=== PATIENT | female | born 1970 | race American Indian/Alaskan Native ===

== ENCOUNTER 2017-04-03 07:33 | Emergency (ER) | payer OTHER ==
[2017-04-03 07:49] VITALS: PULSE 71; RESP 18; TEMP 98.2; O2SAT 100
[2017-04-03 07:50] VITALS: BP 144/86
--- NOTE | 2017-04-03 08:21 | C.PDOC ---
History Of Present Illness 46-year-old female, presents to the emergency department with complaints of sore throat and pain in B/L ears for the past few days. States sick contact at home is daughter, with similar symptoms. Patient denies nausea/vomiting, fevers or chills. Time Seen by Provider: 04/03/17 07:55 Chief Complaint (Nursing): ENT Problem History Per: Patient History/Exam Limitations: None Onset/Duration Of Symptoms: Days Current Symptoms Are (Timing): Still Present Past Medical History Reviewed: Historical Data, Nursing Documentation, Vital Signs Vital Signs: Last Vital Signs Temp 98.2 F 04/03/17 07:48 Pulse 71 04/03/17 07:48 Resp 18 04/03/17 07:48 BP 144/86 04/03/17 07:48 Pulse Ox 100 04/03/17 09:27 - Medical History PMH: HTN Family History: States: Unknown Family Hx - Social History Hx Tobacco Use: No Hx Alcohol Use: No Hx Substance Use: No - Immunization History Hx Tetanus Toxoid Vaccination: Yes Hx Influenza Vaccination: Yes Hx Pneumococcal Vaccination: No Review Of Systems Except As Marked, All Systems Reviewed And Found Negative. ENT: Positive for: Ear Pain, Throat Pain Cardiovascular: Negative for: Chest Pain Respiratory: Negative for: Cough, Shortness of Breath Gastrointestinal: Negative for: Vomiting Physical Exam - Physical Exam Appears: Non-toxic, No Acute Distress Skin: Warm, Dry, No Rash Head: Atraumatic, Normacephalic Eye(s): bilateral: Normal Inspection, EOMI Ear(s): Bilateral: Normal Nose: Normal Oral Mucosa: Moist Lips: Normal Appearing Throat: Erythema, Exudate Neck: Normal ROM, Supple Lymphatic: Adenopathy (submandibular) Chest: Symmetrical Cardiovascular: Rhythm Regular Respiratory: Normal Breath Sounds, No Accessory Muscle Use Extremity: Normal ROM Neurological/Psych: Oriented x3, Normal Speech, Normal Cognition ED Course And Treatment O2 Sat by Pulse Oximetry: 100 Progress Note: Patient is resting comfortably, tolerating PO, and is afebrile at this time. Patient will be discharge home, disucssed symptomatic treatment and instructed to follow up with his/her physician in 1-2 days without fail. Patient was instructed to return for any worsening symptoms, persistent fever, neck pain, rash, abdominal pain, or vomiting. Disposition - Disposition Referrals: Consuelo Neves MD [Staff Provider] - Disposition: HOME/ ROUTINE Disposition Time: 08:19 Condition: STABLE Additional Instructions: Follow up with your primary medical doctor or clinic in 2-5 days for further evaluation. Take medications as prescribed. Return to the emergency department at any time if symptoms persist or worsen. Prescriptions: Azithromycin [Zithromax] 250 mg PO DAILY #6 tab Ibuprofen [Motrin] 600 mg PO Q6 PRN #20 tab PRN Reason: Pain, Mild (1-3) Instructions: Pharyngitis (ED) - Clinical Impression Clinical Impression: Pharyngitis - Scribe Statement The provider has reviewed the documentation as recorded by the Georgiaibivette Ruiz All medical record entries made by the Georgiaibivette were at my direction and personally dictated by me. I have reviewed the chart and agree that the record accurately reflects my personal performance of the history, physical exam, medical decision making, and the department course for this patient. I have also personally directed, reviewed, and agree with the discharge instructions and disposition.
== END 2017-04-03 08:35 | disposition home or self-care (01) ==
LOC: C.ER 07:33
DX: J02.9 Acute pharyngitis, unspecified (principal)

== ENCOUNTER 2018-07-18 08:01 | Emergency (ER) | payer OTHER ==
[2018-07-18 08:02] VITALS: BMI 58.6
[2018-07-18 08:08] VITALS: O2SAT 97
--- NOTE | 2018-07-18 08:29 | C.PDOC ---
History Of Present Illness 47 yo female w/hx of sleep apnea, morbid obesity, chronic lower back pain come in for re-evaluation of lower back pain for past 2 weeks. Patient describes pain as localized over lower back, " cramping, and tight", non-radiating and worse with movement. Pt admits, was seen here on 07/15/18, advised Motrin for pain without improvement. Otherwise, pt denies fever, chills, abd. pain, N/V/D, UTI sx, denies saddle anesthesia, incontinence, denies B/L LEs weakness,sensory or vascular deficits. Ambulate to d for evaluation, not in nay apparent distress. Time Seen by Provider: 07/18/18 08:10 Chief Complaint (Nursing): Back Pain History Per: Patient Past Medical History Reviewed: Historical Data, Nursing Documentation, Vital Signs Vital Signs: Last Vital Signs Temp 97.6 F 07/18/18 08:05 Pulse 78 07/18/18 08:05 Resp 18 07/18/18 08:05 BP 131/85 07/18/18 08:05 Pulse Ox 97 07/18/18 09:34 - Medical History PMH: HTN Other PMH: Sleep apnea, morbid obesity Surgical History: No Surg Hx Family History: States: Unknown Family Hx - Social History Hx Tobacco Use: No Hx Alcohol Use: No Hx Substance Use: No - Immunization History Hx Tetanus Toxoid Vaccination: Yes Hx Influenza Vaccination: Yes Hx Pneumococcal Vaccination: No Review Of Systems Except As Marked, All Systems Reviewed And Found Negative. Constitutional: Negative for: Fever, Chills ENT: Negative for: Throat Pain Gastrointestinal: Negative for: Nausea, Vomiting, Abdominal Pain, Diarrhea Genitourinary: Negative for: Dysuria, Frequency, Incontinence Musculoskeletal: Positive for: Back Pain. Negative for: Neck Pain Skin: Negative for: Rash Neurological: Negative for: Weakness, Numbness, Headache, Dizziness Physical Exam - Physical Exam Appears: Well, Non-toxic, No Acute Distress Skin: Normal Color, Warm, Dry, No Rash Eye(s): bilateral: PERRL Nose: No Flaring, No Discharge Oral Mucosa: Moist, No Drooling Tongue: Normal Appearing Lips: Normal Appearing Throat: No Erythema, No Drooling Neck: Trachea Midline, Supple Gastrointestinal/Abdominal: Soft, No Tenderness, No Distention, No Guarding, No Rebound Back: No CVA Tenderness, No Vertebral Tenderness, Muscle Spasm (lumbar paraspinal), Paraspinal Tenderness (diffuse lumbar) Extremity: Normal ROM, No Tenderness, No Pedal Edema, No Deformity, No Swelling Extremity: Bilateral: Atraumatic DTR: Knee (R): 2+, Knee (L): 2+ Neurological/Psych: Oriented x3, Normal Speech, Normal Motor, Normal Sensation, Normal Reflexes ED Course And Treatment O2 Sat by Pulse Oximetry: 97 Pulse Ox Interpretation: Normal - Other Rad L-spine X-Ray: Interpreted by Me, Viewed By Me, Read By Radiologist Interpretation: Accession No. : [id number]. Patient Name / ID : MADELIN [id number] / [id number]. Exam Date : 07/18/2018 08:40:19 ( Approved ). Study Comment : Sex / Age : F / 47Y. Creator : Ferny Mckeon MD. Dictator : Ferny Mckeon MD. Freight Forwarder : Overhead Distribution Engineer : Ferny Mckeon MD. Approver2 : Report Date : 07/18/2018 09:48:39. My Comment : . Date of service: 07/18/2018. PROCEDURE: Radiographs of the Lumbar Spine. HISTORY: Pain. COMPARISON: No prior. FINDINGS: BONES: No acute compression fractures no retropulsed fragments. Vertebral bodies exhibit normal stature. Vertebral bodies and facets normally aligned. DISC SPACES: Multilevel degenerative spondylosis most notably affecting the L5-S1 level which include disc space narrowing, endplate eburnation as well as anterolateral and smaller posterior osteophyte formation. . Vacuum disc phenomena is also present at this level. Facets also hypertrophic at level. Slightly less severe changes seen at the L4-L5 level. Additionally the there are degenerative there is degenerative of spondylosis in the lower thoracic levels. OTHER FINDINGS: None. IMPRESSION: No acute fractures. Degenerative spondylosis most notably affecting the L5-S1 level. Progress Note: On re-eval, pt is afebrile, hemodynamicaly stable. Non-toxic, ambulatoyr in ED with stable gait. Neck: Supple, (-) JVD. ENT: no acute findings. ABd: benign, (-) guarding, (-) rebound. Back: (-) CVA tenderness. Neurologicaly intact. UA results normal. L-spine xray no other acute findings. Pt has clinical findings c/w lumbar strain. Pt advised on marijuana cessation and ref. to F/u with PMD in 1-2 days for re-eavl. return to ED if any worsening or new changes. Disposition Counseled Patient/Family Regarding: Studies Performed, Diagnosis, Need For Followup, Rx Given - Disposition Referrals: Consuelo Neves MD [Staff Provider] - Disposition: HOME/ ROUTINE Disposition Time: 09:34 Condition: STABLE Additional Instructions: LIgt duty, avoid heavy lifting, bending forwards, etc Take medication as need as prescribed Follow up with PMD in 2-3 days for re-evaluation. return to ED if any worsening or new changes. Prescriptions: Gabapentin [Neurontin] 300 mg PO HS #7 cap Methocarbamol [Robaxin] 500 mg PO TID #14 tab traMADol [Ultram] 50 mg PO TID #7 tab Instructions: Lumbar Muscle Strain (DC) Forms: [employer] (Turkmen) - Clinical Impression Clinical Impression: Lumbar sprain, Degenerative spondylolisthesis
[2018-07-18 09:29] LABS: HCG,QUALITATIVE URINE NEGATIVE (NEGATIVE)
[2018-07-18 09:33] LABS: SQUAMOUS EPITHIAL 4 /hpf (0-5); URINE BACTERIA RARE (<OCC); URINE BILIRUBIN NEGATIVE (NEGATIVE); URINE BLOOD 2+ (NEGATIVE); URINE CLARITY Clear (Clear); URINE COLOR Yellow (YELLOW); URINE GLUCOSE (UA) NORMAL (Normal); URINE LEUKOCYTE ESTERASE NEG Leu/uL (Negative); URINE PROTEIN NEGATIVE (NEGATIVE); URINE UROBILINOGEN NORMAL mg/dL (0.2-1.0)
--- NOTE | 2018-07-18 09:50 | RAD ---
Date of service: 07/18/2018 PROCEDURE: Radiographs of the Lumbar Spine. HISTORY: Pain COMPARISON: No prior. FINDINGS: BONES: No acute compression fractures no retropulsed fragments. Vertebral bodies exhibit normal stature. Vertebral bodies and facets normally aligned. DISC SPACES: Multilevel degenerative spondylosis most notably affecting the L5-S1 level which include disc space narrowing, endplate eburnation as well as anterolateral and smaller posterior osteophyte formation. . Vacuum disc phenomena is also present at this level. Facets also hypertrophic at level. Slightly less severe changes seen at the L4-L5 level. Additionally the there are degenerative there is degenerative of spondylosis in the lower thoracic levels. OTHER FINDINGS: None. IMPRESSION: No acute fractures. Degenerative spondylosis most notably affecting the L5-S1 level.
[2018-07-18 10:45] VITALS: BP 118/81; PULSE 59; RESP 20; TEMP 99
== END 2018-07-18 10:53 | disposition home or self-care (01) ==
LOC: C.ER 08:01
DX: S33.5XXD Sprain of ligaments of lumbar spine, subsequent encounter (principal); X58.XXXD Exposure to other specified factors, subsequent encounter; M43.17 Spondylolisthesis, lumbosacral region

== ENCOUNTER 2019-03-03 08:27 | Emergency (ER) | payer OTHER ==
[2019-03-03 08:27] VITALS: BMI 58.6
[2019-03-03 08:46] VITALS: TEMP 98.1
[2019-03-03] MEDS ORDERED: Sodium Chloride 0.9% Inh Soln (3mL) UD INH ONE (09:24)
--- NOTE | 2019-03-03 09:29 | C.PDOC ---
History Of Present Illness 48 y/o obese female with htn and eczema c/o sore throat, cough with yellow sputum, nasal congestion and difficulty sleeping due to congestion and cough x 1-2 nights. pt took claritin last night with no improvement. denies fever, chills, chest pain and sob. Time Seen by Provider: 03/03/19 08:48 Chief Complaint (Nursing): ENT Problem History Per: Patient History/Exam Limitations: None Onset/Duration Of Symptoms: Days (2) Current Symptoms Are (Timing): Still Present Quality (Ear): denies: Pain W/Touch Quality (Mouth/Throat): Tenderness, Redness Symptoms Have Been: Continuous Severity: Moderate Anticoagulant/Antiplatlet Use?: No Past Medical History Reviewed: Historical Data, Nursing Documentation, Vital Signs Vital Signs: Last Vital Signs Temp 98.1 F 03/03/19 08:44 Pulse 79 03/03/19 08:44 Resp 18 03/03/19 08:44 BP 118/81 03/03/19 08:44 Pulse Ox 97 03/03/19 08:44 - Medical History PMH: HTN Family History: States: Unknown Family Hx - Social History Hx Tobacco Use: No Hx Alcohol Use: No Hx Substance Use: No - Immunization History Hx Tetanus Toxoid Vaccination: No Hx Influenza Vaccination: No Hx Pneumococcal Vaccination: No Review Of Systems Constitutional: Negative for: Fever, Chills ENT: Positive for: Nose Discharge, Nose Congestion, Throat Pain. Negative for: Ear Pain Cardiovascular: Negative for: Chest Pain Respiratory: Positive for: Cough. Negative for: Shortness of Breath Gastrointestinal: Negative for: Vomiting, Abdominal Pain Physical Exam - Physical Exam Appears: Non-toxic, No Acute Distress, Other (morbidly obese. uncomfortable) Skin: Warm, Dry Head: Atraumatic, Normacephalic Eye(s): bilateral: Normal Inspection Ear(s): Bilateral: TM Obscured By Wax Nose: Discharge, Other (congested) Tongue: Normal Appearing Lips: Normal Appearing Throat: Erythema, No Exudate Neck: Supple Respiratory: No Decreased Breath Sounds, No Rales, No Rhonchi, No Wheezing ED Course And Treatment O2 Sat by Pulse Oximetry: 97 (RA) Pulse Ox Interpretation: Normal Medical Decision Making Medical Decision Making: pt with nasal congestion. post nasal drip and sore throat; will check for strep, give tylenol and nasal saline, d/c with flonase. 1054 strep neg. d/c with Tylenol, flonase and claritin. f/u pmd. Disposition Counseled Patient/Family Regarding: Diagnosis, Need For Followup, Rx Given - Disposition Referrals: [facility] [Outside] Disposition: HOME/ ROUTINE Disposition Time: 10:55 Condition: GOOD Additional Instructions: Please take medications as prescribed. Drink increased fluids. avoid dairy products. Gargel with warm salty water several times a day. Try a neti pot for nasal congestion. Follow up in medical clinic in a few days. Prescriptions: Acetaminophen [Tylenol 325mg tab] 650 mg PO Q4 #50 tab Fluticasone Nasal [Flonase] 1 spr NS DAILY #1 bottle Loratadine [Claritin] 10 mg PO DAILY #30 tab Instructions: Seasonal Allergies (DC), Cough, Runny Nose, and the Common Cold (DC) Forms: [facility] (Persian) - Clinical Impression Clinical Impression: Seasonal allergies, Pharyngitis
[2019-03-03 11:27] VITALS: BP 116/71; PULSE 61; RESP 20
[2019-03-05 16:32] VITALS: O2SAT 97
== END 2019-03-03 11:20 | disposition home or self-care (01) ==
LOC: C.ER 08:27
DX: J02.9 Acute pharyngitis, unspecified (principal); J30.2 Other seasonal allergic rhinitis; I10 Essential (primary) hypertension